=== PATIENT | female | born 1955 | race Caucasian/White ===

== ENCOUNTER 2021-03-24 17:48 | Emergency (ER) | payer MEDICAID, SELFPAY ==
[2021-03-24 17:49] VITALS: BP 148/81; PULSE 103; PULSE 109; RESP 28; TEMP 36.5; O2SAT 96; O2SAT 97; BMI 40.3
--- NOTE | 2021-03-24 18:01 | RAD_ITS ---
STUDY: X-RAY - LEFT RADIUS AND ULNA REASON FOR EXAM: Female, 66 years old. trauma, pain TECHNIQUE: 2 view(s) of the forearm. COMPARISON: None. FINDINGS: There is no demonstrated soft tissue swelling. Normal visualized radius. Normal visualized ulna. RAD/Forearm 2 Views IMPRESSION: Normal x-ray examination of the radius and ulna. Electronically Signed: Connor Torres MD at 18:37 EDT Tel , Service support ,
--- NOTE | 2021-03-24 18:02 | EX.ED.UPPERE ---
HPI History of Present Illness Chief Complaint: Upper Extremity Injury Narrative Narrative: 66-year-old female presents with concern for fall. States that she missed a step up wheelers and fell on her left arm. Has pain in her elbow and forearm. Describes it as sharp and worse with movement. Denies any head injury. Patient also sustained an abrasion to the left knee but no pain in this area. Not up-to-date on tetanus. Patient is on aspirin. PFSH PFSH Home Medications naproxen 500 mg PO BID #10 tab 03/24/21 [Rx Last Taken Unknown] Allergy/AdvReac Type Severity Reaction Status Date / Time Penicillins [PCN] Allergy Rash Verified 03/24/21 17:52 Social History Smoking Status: Current every day smoker tobacco type: cigarettes ROS ROS ED Constitutional Constitutional ED: Denies chills, fever(s) or sweats Eyes Eyes: Denies blurry vision, change in vision or diplopia ENT ENT ED: Denies rhinorrhea or sore throat Cardiovascular Cardiovascular: Denies chest pain, orthopnea, palpitations or racing heartbeat Respiratory/Chest Respiratory/Chest: Denies cough, dyspnea, dyspnea on exertion, orthopnea or sputum Gastrointestinal Gastrointestinal: Denies abdominal pain, constipation, diarrhea, melena, nausea or vomiting Genitourinary Genitourinary ED: Denies dysuria, hematuria or urinary frequency Musculoskeletal Musculoskeletal: Reports other Details: elbow and forearm pain ; Denies arthralgias, myalgias or neck pain Integumentary Denies rash Neurologic Neurologic: Denies headache(s), paresthesias or weakness Psychiatric Psychiatric: Denies anxiety or depression Hematologic/Lymphatic Hematologic/Lymphatic: Denies easy bleeding or easy bruising Allergic/Immunologic Allergic/Immunologic ED: Denies mouth swelling or tongue swelling EXAM Physical Exam Const Vital Signs: 03/24/21 17:49 Temperature 97.7 F L Temperature Source Temporal Pulse Rate 109 H Respiratory Rate 28 H Blood Pressure 148/81 H Blood Pressure Mean 103 Pulse Ox 97 Oxygen Delivery Method Room Air Positive well nourished and well developed General Appearance ED: well developed HEENT Reports TM's clear and moist mucous membranes normocephalic and atraumatic Tympanic Membrane ED: Yes TM's clear Eyes PERRL and EOMs intact bilaterally Neck no lymphadenopathy, supple and no JVD Chest Wall inspection of chest normal Resp normal respiratory effort and clear to auscultation bilaterally Cardio regular rate, S1 normal heart sound, S2 normal heart sound and no murmurs Peripheral Pulses: pulses 2+ throughout GI soft to palpation, non-tender and non-distended Back/Spine no CVA tenderness and no thoracic nor lumbar tenderness Extremity Extremity Narrative: Tenderness to palpation in the left elbow and forearm. No overlying skin changes. Full range of motion. Abrasion to the left knee. Full range of motion. No tenderness to palpation. General Extremety ED: Negative for tenderness Neuro oriented x3, CN's II-XII intact bilaterally and no sensory deficits noted Sensorium / Orientation: alert Motor Exam: strength 5/5 throughout Psych mental status grossly normal Skin no rashes or lesions noted MDM MDM MDM Narrative Medical decision making narrative: Patient appears well nontoxic. Vital signs within normal limits. No obvious head injury. X-ray of the left elbow and forearm negative. Tetanus updated for left knee abrasion. Patient given oxycodone in the emergency department. Will be given Naprosyn a sling for home. Asked to return for new or worsening symptoms. Patient agreeable and discharged home in stable condition. Discharge Plan Triage Chief Complaint: Upper Extremity Injury ED Provider: Mario Maradiaga Dx/Rx/DC Orders Clinical Impression: Contusion of elbow, left, Abrasion of knee, left, Fall Instructions: ED Contusion, Elbow Prescriptions: New naproxen 500 mg tablet 500 mg PO BID Qty: 10 RF: 0 Primary Care Provider: Valentine Betts Referrals: Valentine Betts MD [Primary Care Provider] - 2 Days Disposition Disposition: Home, Self Care
[2021-03-24] MEDS: oxyCODONE 5 MG Tablet PO (18:07)
[2021-03-24] MEDS: Diphth,Pertuss(Acell),Tet Vac 0.5 ML Vial IM (18:09)
--- NOTE | 2021-03-24 18:20 | RAD_ITS ---
INDICATION: Trauma EXAMINATION/TECHNIQUE: X-RAY - LEFT XR Elbow Min 3 Views COMPARISON: None. FINDINGS: SOFT TISSUES: No soft tissue swelling or gas. No radiopaque foreign body. BONES/JOINTS: There is no displacement of the anterior or posterior fat pads. No acute fracture or subluxation. Normal alignment. Preservation of the joint space. No sclerotic or destructive changes observed. RAD/Elbow min 3 Views IMPRESSION: Negative. Electronically Signed: Ishmael Serna MD at 18:34 EDT Tel , Service support ,
== END 2021-03-24 19:20 | disposition home or self-care (01) ==
PROVIDERS: Emergency Provider Emergency Medicine; PCP Internal Medicine
DX: S50.02XA Contusion of left elbow, initial encounter (principal); S80.212A Abrasion, left knee, initial encounter; F17.210 Nicotine dependence, cigarettes, uncomplicated; W19.XXXA Unspecified fall, initial encounter
CPT/HCPCS: 73080; 73090; 90471; 90715; 99283

== ENCOUNTER 2022-08-16 09:17 | Emergency (ER) | payer MEDICAID, SELFPAY ==
[2022-08-16 09:18] VITALS: BP 119/82; PULSE 80; RESP 14; TEMP 36.2; O2SAT 92; BMI 34.5
--- NOTE | 2022-08-16 09:44 | EDS_ITS ---
HPI History of Present Illness Chief Complaint: Upper Extremity Injury Informant: patient Onset/Context/Timing Onset: Days (3) Context: Gradual Onset (unk trigger, no injury) Timing: Continuous Quality of Pain: - (pain) Location: L shoulder blade area, radiating into lateral L upper arm Current Severity: Moderate Maximum Severity: Moderate Worsened by: only by resting elbow on table and applying pressure Relieved by: rest, tylenol but not much Associated Symptoms Associated Symptoms: Negative for Parasthesia, Weakness or Loss of Funtion Narrative Narrative: [id number] female states she woke up 3 days ago, she was not having this pain but then shortly afterwards she went to get her coffee and at some point noticed the pain and it has progressively worsened. She denies any obvious trigger, movement, or injury that she can think of. She denies any numbness in the area of pain or in her hand. She is not having any weakness or dropping things with her left hand. The pain is mostly in her periscapular area and trapezius area on top of her shoulder, but radiates to the area of the deltoid and down the lateral aspect of her left upper arm, she does not have elbow pain or anything distal, but when she was resting her elbow on a table when applying pressure the pain in her scapula and trapezius is worse. She has tried taking Tylenol, nothing else. [facility] Medical History (Updated 08/16/22 @ 10:[address] Paresh Slater MD) COPD (chronic obstructive pulmonary disease) Hypertension Home Medications naproxen 500 mg tablet 500 mg PO BID #10 tabs 03/24/21 [Rx Last Taken Unknown] meloxicam 7.5 mg tablet 7.5 mg PO DAILY #7 tabs 08/16/22 [Rx Last Taken Unknown] tramadol 50 mg tablet 50 mg PO Q6H PRN pain 3 days #12 tabs 08/16/22 [Rx Last Taken Unknown] Allergy/AdvReac Type Severity Reaction Status Date / Time Penicillins [PCN] Allergy Rash Verified 08/16/22 09:20 Social History Smoking Status: Current every day smoker tobacco type: cigarettes ROS ROS ED Constitutional Constitutional ED: Denies chills or fever(s) Musculoskeletal Musculoskeletal: Reports extremity pain; Denies neck pain Integumentary Denies Abrasions, rash or wounds Neurologic Neurologic: Denies paresthesias or weakness EXAM Physical Exam Const Vital Signs: 08/16/22 09:18 Temperature 97.2 F L Temperature Source Temporal Pulse Rate 80 Respiratory Rate 14 Blood Pressure 119/82 H Blood Pressure Mean 94 Pulse Ox 92 Oxygen Delivery Method Room Air Positive well nourished and well developed General Appearance ED: well developed and NAD Neck full ROM and supple Back/Spine normal ROM and normal to inspection Extremity normal to inspection and full ROM Extremity Narrative: For range of motion of the left shoulder. Negative Speed test. Patient is able to push posteriorly from the small of her back with her left hand without pain. Painless internal and external rotation from neutral. Painless full abduction. With flexing her arm forward about 45 degrees, and resisting her at the elbow in extension, she reproduces the pain. She is tender in the left upper periscapular area and the trapezius but when I get to the cervical portion of the trapezius and the neck proper, she is nontender. There is no anterior or subacromial, nor AC or acromial tenderness whatsoever and her Yergason sign is negative. She has no superficial skin tenderness nor does she have a rash to suggest zoster or radiculopathy. Neuro oriented x3, no focal motor deficits and no sensory deficits noted Neuro Narrative: Normal function sensory and motor left median, radial, ulnar nerves. Intact pulse. Sensorium / Orientation: alert Psych mental status grossly normal and thought process normal Skin no wounds Rashes: no rashes MDM MDM MDM Narrative Medical decision making narrative: Patient appears to be having muscular pain that is localized to from what I can tell the left trapezius and/or latissimus dorsi. Three-view x-ray series of the left shoulder was obtained, shows some calcific tendinitis, but no other acute abnormality. I suspect this may be an incidental finding given the history and exam, but will have her follow-up with orthopedics if her pain does not resolve in the next week for reevaluation. She was given a tramadol here, she was prescribed a week of meloxicam in addition to some of that. Discharge Plan Triage Chief Complaint: Upper Extremity Injury ED Provider: Paresh Slater Dx/Rx/DC Orders Clinical Impression: Strain of left trapezius muscle, Calcific tendinitis of left shoulder Instructions: ED Shoulder Pain, Uncertain Cause Prescriptions: New tramadol 50 mg tablet 50 mg PO Q6H PRN (Reason: pain) 3 Days Qty: 12 0RF meloxicam 7.5 mg tablet 7.5 mg PO DAILY Qty: 7 0RF No Action naproxen 500 mg tablet 500 mg PO BID Qty: 10 0RF Primary Care Provider: Valentine Betts Referrals: Valentine Betts MD [Primary Care Provider] - Eduardo Vieyra DO [Med Staff - Active Staff] - 1 Week if not improving Disposition Disposition: Home, Self Care
--- NOTE | 2022-08-16 10:02 | RAD_ITS ---
STUDY: X-RAY - LEFT SHOULDER REASON FOR EXAM: Female, 67 years old. Pain posteriorly TECHNIQUE: 4 view(s) of the shoulder. COMPARISON: None. FINDINGS: Normal glenohumeral articulation. There is degenerative arthrosis of the acromioclavicular joint without inferior osseous spur formation. Normal acromion. Normal humeral head and visualized proximal humerus. There is periarticular soft tissue calcification consistent with a calcific tendinitis. Normal visualized pulmonary apex. RAD/Shoulder min 2 Views IMPRESSION: Calcific tendinitis overlying the greater tuberosity of the proximal left humerus. Electronically Signed: Cosme Chand MD at 10:18 EST ,
[2022-08-16] MEDS: traMADol 50 MG Tablet PO (10:25)
[2022-08-16 11:16] VITALS: BP 125/74; PULSE 76; RESP 18; O2SAT 94
== END 2022-08-16 11:17 | disposition home or self-care (01) ==
PROVIDERS: Emergency Provider Emergency Medicine; PCP Internal Medicine; Visit Provider Emergency Medicine
DX: S29.012A Strain of muscle and tendon of back wall of thorax, initial encounter (principal); J44.9 Chronic obstructive pulmonary disease, unspecified; M75.32 Calcific tendinitis of left shoulder; F17.210 Nicotine dependence, cigarettes, uncomplicated; I10 Essential (primary) hypertension; X58.XXXA Exposure to other specified factors, initial encounter
CPT/HCPCS: 73030; 99283

== ENCOUNTER 2022-12-09 12:16 | Emergency (ER) | payer MEDICAID, SELFPAY ==
[2022-12-09 12:17] VITALS: BP 139/55; PULSE 89; RESP 16; TEMP 36.6; O2SAT 100
--- NOTE | 2022-12-09 12:33 | EX.ED.DYSGE1 ---
HPI History of Present Illness Chief Complaint: Back Narrative Narrative: Patient presents with left buttock pain that started earlier today it is worse when she ambulates but she has no difficulty sitting up or twisting or turning. She has no back pain. She has no radicular symptoms. No weakness or paresthesias. No urinary symptoms. [facility] Medical History (Updated 12/09/22 @ 12:[address] Rudy Awad MD) COPD (chronic obstructive pulmonary disease) Hypertension Home Medications naproxen 500 mg tablet 500 mg PO BID #10 tabs 03/24/21 [Rx Last Taken Unknown] meloxicam 7.5 mg tablet 7.5 mg PO DAILY #7 tabs 08/16/22 [Rx Last Taken Unknown] tramadol 50 mg tablet 50 mg PO Q6H PRN pain 3 days #12 tabs 08/16/22 [Rx Last Taken Unknown] Allergy/AdvReac Type Severity Reaction Status Date / Time Penicillins [PCN] Allergy Rash Verified 12/09/22 12:19 Social History Smoking Status: Current every day smoker tobacco type: cigarettes ROS ROS ED ROS Narrative Past medical history: Hypertension, hypercholesterolemia Medications: Reviewed Social history: Noncontributory Review of systems: Musculoskeletal: Left buttock pain as in HPI Skin: No abrasions or lacerations Neurological: No weakness or paresthesias Hematologic: No easy bleeding or easy bruising EXAM Physical Exam Narrative Exam Narrative: Physical exam General: Patient does not appear in significant distress . Head: Normocephalic, Atraumatic Neck: No C-spine tenderness Cardiovascular: Normal distal pulses Back: Nontender, Normal Inspection. Extremities: Patient has pain over the left SI joint. No pain with logrolling, no hip pain. Pelvis is stable. No LS-spine tenderness. Skin: No abrasions, no lacerations Neurological: Normal strength and sensation Const Vital Signs: 12/09/22 12:17 Temperature 97.8 F Temperature Source Temporal Pulse Rate 89 Respiratory Rate 16 Blood Pressure 139/55 H Blood Pressure Mean 83 Pulse Ox 100 Oxygen Delivery Method Room Air MDM MDM MDM Narrative Medical decision making narrative: Patient has a normal x-ray, she likely has sacroiliitis. I do not believe she needs x-ray of the lumbar spine, I do not believe she needs any other imaging at this time. She appears well, I will discharge in stable condition. Radiography Diagnostic Testing: Pelvis x-ray read by me as normal no fractures. Normal SI joint. Discharge Plan Triage Chief Complaint: Back ED Provider: Rudy Awad Dx/Rx/DC Orders Clinical Impression: Acute buttock pain, Sacroiliitis Instructions: ED Sacroiliitis Prescriptions: No Action naproxen 500 mg tablet 500 mg PO BID Qty: 10 0RF tramadol 50 mg tablet 50 mg PO Q6H PRN (Reason: pain) 3 Days Qty: 12 0RF meloxicam 7.5 mg tablet 7.5 mg PO DAILY Qty: 7 0RF Primary Care Provider: Valentine Betts Referrals: Valentine Betts MD [Primary Care Provider] - 3-5 Days Disposition Disposition: Home, Self Care
--- NOTE | 2022-12-09 12:40 | RAD_ITS ---
STUDY: X-RAY - PELVIS REASON FOR EXAM: Female, 67 years old. Low back pain. TECHNIQUE: One view of the pelvis was obtained. COMPARISON: None. FINDINGS: Moderate amount of fecal material is seen in the colon. There is evidence of bilateral tubal ligation clips. Normal bilateral iliac wings, sacroiliac joints and visualized sacrum. Normal visualized bilateral superior and inferior pubic rami. Normal pubic symphysis. Normal ischial tuberosities. Normal visualized right femoral head. Normal right acetabulum. Normal right hip joint. Normal visualized left femoral head. Normal left acetabulum. Normal left hip joint. RAD/Pelvis 1 or 2 Views IMPRESSION: Normal x-ray examination of the pelvis. Electronically Signed: Cosme Chand MD at 12:56 EST ,
[2022-12-09] MEDS: HYDROcodone Bitartrate/Apap 5/325 Tablet PO (12:48)
[2022-12-09 12:50] VITALS: BMI 38.3
[2022-12-09] MEDS: Triamcinolone Acetonide 40 MG/ML Vial IM (13:09)
== END 2022-12-09 13:12 | disposition home or self-care (01) ==
LOC: ED 12:58
PROVIDERS: Emergency Provider Emergency Medicine; PCP Internal Medicine; Visit Provider Emergency Medicine
DX: M46.1 Sacroiliitis, not elsewhere classified (principal); J44.9 Chronic obstructive pulmonary disease, unspecified; I10 Essential (primary) hypertension; F17.210 Nicotine dependence, cigarettes, uncomplicated
CPT/HCPCS: 72170; 96372; 99283